=== PATIENT | male | born 1940 | race Caucasian/White ===

== ENCOUNTER → 2016-10-11 | Outpatient (CLI) | payer MEDICARE, BC ==
[~2016-10-11] MED LIST: ASPIRIN ADULT L81 M3 PO; CIPRO 500MG TA500 MG PO; CYCLOBENZAPRINE10 MG PO; KETOROLAC TROME10 MG PO; METRONIDAZOLE500 MG PO; NAPROSYN500 MG PO; NORCO 325 MG-51 TA1 PO
== END ==
LOC: RAD 15:35
DX: M54.5 Low back pain (principal); M41.86 Other forms of scoliosis, lumbar region

== ENCOUNTER → 2016-11-23 | Day surgery (SDC) | payer MEDICARE, BC | LOC: MSO 12:25 | DX: K22.70 Barrett's esophagus without dysplasia (principal); K44.9 Diaphragmatic hernia without obstruction or gangrene; K21.9 Gastro-esophageal reflux disease without esophagitis; I10 Essential (primary) hypertension; Z87.891 Personal history of nicotine dependence | CPT/HCPCS: 00740; A4649; J7120 ==